=== PATIENT | male | born 1995 | race Caucasian/White ===

== ENCOUNTER → 2024-01-24 17:11 | Outpatient (REF) | payer BC, SELFPAY | LOC: RAD 17:11 | PROVIDERS: ATTENDING PHYSICIAN Internal Medicine | DX: M54.2 Cervicalgia (principal) | CPT/HCPCS: 72052 ==

== ENCOUNTER → 2024-04-23 18:06 | Outpatient (REF) | payer BC, SELFPAY | LOC: MRI 3T 18:06 | PROVIDERS: ATTENDING PHYSICIAN Physician Assistant Medical; FAMILY PHYSICIAN Internal Medicine; REFERRING PHYSICIAN Specialist | DX: R55 Syncope and collapse (principal); G44.52 New daily persistent headache (NDPH) | CPT/HCPCS: 70553; A9575 ==

== ENCOUNTER → 2025-02-11 07:32 | Outpatient (REF) | payer BC, SELFPAY | LOC: HWRAD 07:32 | PROVIDERS: ATTENDING PHYSICIAN Internal Medicine | DX: N50.89 Other specified disorders of the male genital organs (principal) | CPT/HCPCS: 76870; 93976 ==